=== PATIENT | male | born 1970 | race Caucasian/White ===

== ENCOUNTER 2021-03-13 14:35 | Emergency (ER) | payer OTHER, MEDICAID, SELFPAY ==
[2021-03-13] VITALS (27 sets, daily range): BP systolic 116–151; BP diastolic 49–85; PULSE 79–94; RESP 20–25; TEMP 36.2–36.7; O2SAT 93–98; BMI 57.5
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
--- NOTE | 2021-03-13 14:34 | ED_ITS ---
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 following: [x] Data Review and interpretation [x] Patient assessment and monitoring of vital signs [x] Documentation [x] Medication orders and management Discharge Plan Departure Patient Disposition: [facility] Clinical Impression: Pelvic fracture
[2021-03-13] MEDS: fentaNYL 100 MCG/2 ML INJ (14:45)
[2021-03-13 14:49] LABS: Add Manual Diff / Slide Review NO; Basophils Absolute Auto 200 /uL (0-100); Eosinophils Absolute Auto 100 /uL (0-450); Eosinophils Percent Auto 0.6 % (2-4); Hematocrit 38.8 % (41-53); Hemoglobin 12.4 g/dL (13.5-17.5); Lymphocytes Absolute Auto 2200 /uL (1100-4500); Lymphocytes Percent Auto 11.1 % (25-40); Mean Corpuscular HGB Conc 31.9 % (30-36); Mean Corpuscular Hemoglobin 27.5 PG (26-34); Mean Corpuscular Volume 86.3 fL (80-100); Monocytes Absolute Auto 1300 /uL (0-900); Monocytes Percent Auto 6.4 % (3-14); Neutrophils Absolute Auto 16300 /uL (1500-7000); Neutrophils Percent Auto 80.9 % (50-75); Platelet Count 324 X10^3/uL (150-400); Red Blood Cell Count 4.49 X10^6/uL (4.5-5.9); Red Cell Distribution Width 15.2 % (11.6-14.8); White Blood Cell Count 20.1 X10^3/uL (4.5-11.0)
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
[2021-03-13 14:52] LABS: INR 1.2 (0.9-1.3); Prothrombin Time 13.8 SECONDS (10.1-12.7)
[2021-03-13 14:54] LABS: PTT Partial Thromboplastin Tim 29 SECONDS (26.4-36.2)
[2021-03-13] MEDS: LIDOCAINE 2% (GLYDO) 6 ML GEL TOP (14:55)
[2021-03-13 14:57] LABS: Alanine Aminotransferase 19 IU/L (<50); Albumin 4.2 g/dL (3.5-5.0); Albumin Globulin Ratio 1.5 (1.0-2.8); Alkaline Phosphatase 94 U/L (38-126); Aspartate Aminotransferase 29 IU/L (17-59); BUN Creatinine Ratio 19.5 (6-22); Bilirubin Total 0.6 mg/dL (0.2-1.3); Blood Urea Nitrogen 24 mg/dL (9-20); Calcium 9.1 mg/dL (8.4-10.2); Carbon Dioxide 25 mmol/L (22-32); Chloride 102 mmol/L (98-107); Creatine Kinase 538 U/L (55-170); Estimated Glomerular Filt Rate > 60.0 mL/min (>60); Ethanol (ETOH) < 10 mg/dL; Globulin 2.8 g/dL (1.7-4.1); Glucose 165 mg/dL (70-100); HEMOLYSIS < 15 (0-50); Lactate (Lactic Acid) 3.8 mmol/L (0.7-2.1); Lipase 128 U/L (23-300); Potassium 4.2 mmol/L (3.4-5.1); Sodium 138 mmol/L (137-145)
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
[2021-03-13 15:08] LABS: Troponin I < 0.012 ng/mL (0.01-0.034)
[2021-03-13 15:11] LABS: CKMB % Relative Index 1.3 % (1.5-5.0); Creatine Kinase MB 7.18 ng/mL (<2.37)
[2021-03-13] MEDS: fentaNYL 100 MCG/2 ML INJ IV (15:16)
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
[2021-03-13 15:43] LABS: COVID19 -Nasal RAPID Negative (Negative)
[2021-03-13] MEDS: MORPHINE 4 MG/ML INJ IV (15:48)
[2021-03-13 15:50] LABS: UR Morphine/Opiate cutoff 300 Negative (Negative); Ur Creatinine Normal (Normal); Ur Specific Gravity Normal (Normal); Urine Amphetamines Negative (Negative); Urine Barbiturates Negative (Negative); Urine Benzodiazepines Negative (Negative); Urine Cocaine Negative (Negative); Urine MDMA Negative (Negative); Urine Methadone Negative (Negative); Urine Methamphetamines Negative (Negative); Urine Oxycodone Negative (Negative); Urine Phencyclidine Negative (Negative); Urine Tetrahydrocannabinol Negative (Negative); Urine Tricyclic Antidepressant Negative (Negative); Urine pH Normal (Normal)
[2021-03-13 16:03] LABS: Bacteria Urine None Seen; Culture Indicated Urine Cult Not Indicated; Mucus Urine 1+ (Negative); RBC Urine 1-5/HPF (0-5/HPF); Squamous Epithelial Cell Urine 0-1 /HPF (0-5/HPF); WBC Urine 0-1/HPF (0-5/HPF)
[2021-03-13] MEDS: LORazepam 2 MG/ML INJ 0.5 MG IV (16:05)
[2021-03-13 16:15] LABS: COVID19 - ADMIT (NP swab/PCR) Negative (Negative)
[2021-03-13] MEDS: HYDROMORPHONE 0.5 MG INJ IV (16:30)
[2021-03-13 16:43] LABS: Reflexed Lactate in 2 Hours Y
== END 2021-03-13 16:40 | disposition short-term general hospital (02) ==
PROVIDERS: Emergency Provider Emergency Medicine
DX: S32.89XA Fracture of other parts of pelvis, initial encounter for closed fracture (principal); S06.9X9A Unspecified intracranial injury with loss of consciousness of unspecified duration, initial encounter; S00.81XA Abrasion of other part of head, initial encounter; S00.31XA Abrasion of nose, initial encounter; M25.551 Pain in right hip; S81.811A Laceration without foreign body, right lower leg, initial encounter; Z20.822 Contact with and (suspected) exposure to COVID-19; M54.50 Low back pain, unspecified; R20.0 Anesthesia of skin; Z79.01 Long term (current) use of anticoagulants; V09.20XA Pedestrian injured in traffic accident involving unspecified motor vehicles, initial encounter
CPT/HCPCS: 36415; 70450; 71045; 71260; 72125; 72170; 73590; 74177; 80053; 80305; 80320; 81015; 82550; 82553; 82962; 83605; 83690; 84484; 85025; 85610; 85730; 86850; 86900; 86901; 87635; 93005; 96374; 96375; 96376; 99285; 99291; 99292; C9803; G0390; J1170; J2060; J2270; J3010; Q9967

== ENCOUNTER → 2024-09-02 13:27 | Outpatient (CLI) | payer OTHER, SELFPAY ==
--- NOTE | 2024-09-02 14:33 | DI.ECHO.S_ITS ---
[facility] : : [id number] : : [place] : : [id number] : : Phone: [phone] Echocardiogram Report + + :Name: CHAKA LEON Study Date: 09/02/2024 Height: 73 in : :Hospital ReadingLocation: Weight: 440 lb : : Gender: Male BSA: 3.0 m2 : :: 1970 Age: 54 yrs BP: 111/65 mmHg: :Reason For Study: CARDIOMYOPATHY, LV MURAL THROMBUS : :Ordering Physician: HARJIT, : :CHAVA Performed By: Gracia Glover : :Referring: CHAVA MULLINS : + + Interpretation Summary 1) Normal left ventricular size and systolic function (EF 55-60%). Distal anterolateral wall, distal inferolateral wall and apex are severely hypokinetic. Distal anterior wall appears mildly hypokinetic. 2) Normal right ventricular size and function. 3) No significant valvular abnormalities. 4) The ascending aorta is mildly enlarged at 3.9cm. 5) Compared to the echo done 05/16/2024, LVEF has improved from 40-45% on this study and LV thrombus has resolved. Procedure: A two-dimensional transthoracic echocardiogram with color flow and Doppler was performed. The study quality was technically difficult. Comparison is made with the echocardiogram of 05/16/2024. A contrast injection of Definity was performed to improve assessment of LV function. The patient was in sinus rhythm with heart rates between 65-70 bpm during the exam. Left Ventricle: There is mild concentric left ventricular hypertrophy. The estimated left ventricular end diastolic volume is 202 ml. The thrombus on 05/16/2024 measured approximately 15x 20mm. Papillary muscle seen during the current study (contrast goes around it) and no thrombus noted. There is no thrombus. The ejection fraction is estimated to be 55-60%. Distal anterolateral wall, distal inferolateral wall and apex are severely hypokinetic. Distal anterior wall appears mildly hypokinetic. Right Ventricle: The right ventricle is normal in size and function. Atria: The left atrial size is normal. Right atrial size is normal. There is no Doppler evidence for an interatrial shunt. Mitral Valve: There is mild mitral annular calcification. The mitral valve leaflets appear to open well. There is trace mitral regurgitation. Aortic Valve: The aortic valve is grossly normal. The aortic valve opens well. There is no aortic valve stenosis. No aortic regurgitation is present. Tricuspid Valve: The tricuspid valve is not well visualized. Pulmonary artery pressures cannot be estimated because of the lack of a measurable TR jet velocity. No tricuspid regurgitation. Pulmonic Valve: The pulmonic valve leaflets are thin and pliable; valve motion is normal. There is trace pulmonic regurgitation. Great Vessels: The aortic root is normal size. The ascending aorta is mildly enlarged. The IVC is of normal diameter and collapses greater than 50% with a sniff. This suggests a low right atrial pressure of 3 mm Hg. Pericardium/ Pleura There is no pericardial effusion. There is no pleural effusion. MMode/2D Measurements & Calculations LVIDd: 5.9 cm LVOT diam: 2.6 cm LVIDs: 4.2 cm Ao root diam: 3.3 cm FS: 29.4 % asc Aorta Diam: 3.9 cm EPSS: 0.96 cm IVSd: 1.1 cm LVPWd: 1.2 cm LV bay. diameter/BSA (cm/m^2): 2.0 LV sys. diameter/BSA (cm/m^2): 1.4 LA A2 area: 22.8 cm2 RA long axis: 5.7 cm LA A4 area: 16.9 cm2 RA area: 15.2 cm2 LA length (vol): 5.8 cm RA vol: 34.4 ml LA vol: 56.7 ml RA : 11.4 ml/m2 LA vol index: 18.8 ml/m2 IVC diam: 1.6 cm RVD1 (basal): 4.0 cm TAPSE: 2.3 cm Doppler Measurements & Calculations Ao V2 max: 146.8 cm/sec LVOT Max Red: 81.6 cm/sec Ao V2 mean: 104.5 cm/sec LV V1 max P.7 mmHg Ao max P.6 mmHg LV V1 VTI: 17.5 cm Ao mean P.8 mmHg REX(I,D): 3.3 cm2 Ao V2 VTI: 28.6 cm REX(V,D): 3.0 cm2 sev ratio: 0.61 REX indexed to BSA (cm^2/m^2): 1.1 MV E max red: 65.0 cm/sec PA pr(Accel): 36.6 mmHg MV A max red: 87.2 cm/sec MV E/A: 0.74 Med Peak E' Red: 6.6 cm/sec E/E' med: 9.8 Lat Peak E' Red: 7.8 cm/sec E/E' lat: 8.3 E/e' average: 9.1 MV dec time: 0.28 sec SV(LVOT): 94.0 ml Reading Physician:12:22 PM
== END ==
PROVIDERS: Referring Provider Internal Medicine Cardiovascular Disease; Visit Provider Internal Medicine Cardiovascular Disease
DX: I34.81 Nonrheumatic mitral (valve) annulus calcification (principal); I25.5 Ischemic cardiomyopathy; I51.3 Intracardiac thrombosis, not elsewhere classified; I77.89 Other specified disorders of arteries and arterioles
CPT/HCPCS: C8929; Q9957